=== PATIENT | female | born 1985 | race Caucasian/White ===

== ENCOUNTER 2017-01-24 16:05 | Emergency (ER) | payer OTHER ==
[~2017-01-24] VITALS: Ht 157.4 cm; Wt 56.7 kg
[2017-01-24 17:05] LABS: BASO # 0.1 10*3/uL (0.0-0.1); BASO % 1.3 % (0.0-1.0); EOS # 0.1 10*3/uL (0.0-0.4); EOS % 1.7 % (1.0-4.0); HEMATOCRIT 34.4 % (37.0-47.0); HEMOGLOBIN 10.8 g/dl (12.0-16.0); LYMPH # 1.8 10*3/uL (1.3-4.4); LYMPH % 39.4 % (27.0-41.0); MEAN CELL VOLUME 86.6 fl (81.0-99.0); MEAN CORPUSCULAR HGB 27.2 pg (27.0-31.0); MEAN CORPUSCULAR HGB CONC 31.4 g/dl (33.0-37.0); MEAN PLATELET VOLUME 10.3 fl (9.6-12.3); MONO # 0.3 10*3/uL (0.1-1.0); MONO % 6.5 % (3.0-9.0); NEUT # 2.4 10*3/uL (2.3-7.9); NEUT % 50.9 % (47.0-73.0); PLATELET COUNT AUTOMATED 246 10*3/uL (130-400); RED BLOOD COUNT 3.97 10*6/uL (4.10-5.10); RED CELL DISTRI WIDTH 13.6 % (0-14.5); WHITE BLOOD COUNT 4.7 10*3/uL (4.8-10.8)
[2017-01-24 17:22] LABS: ALBUMIN 3.4 gm/dl (3.1-4.5); ALKALINE PHOSPHATASE 74 U/L (45-117); BUN 6 mg/dl (7-24); CHLORIDE 103 mmol/L (98-107); CREATININE 0.85 mg/dL (0.55-1.02); SGOT/AST 13 IU/L (3-35); SGPT/ALT 15 U/L (12-78); SODIUM 141 mmol/L (136-145); TOTAL PROTEIN 7.1 gm/dL (6.4-8.2)
[2017-01-24 18:00] LABS: BILIRUBIN NEGATIVE (NEGATIVE); BLOOD NEGATIVE (NEGATIVE); CLARITY SL CLOUDY (CLEAR); COLOR YELLOW (YELLOW); GLUCOSE NEGATIVE (NEGATIVE); KETONE NEGATIVE (NEGATIVE); LEUKO ESTERASE NEGATIVE (NEGATIVE); NITRITE NEGATIVE (NEGATIVE); PH 6.5 (5.0-9.0); SPECIFIC GRAVITY 1.025 (1.005-1.030)
[2017-01-24 18:07] LABS: URINE AMPHETAMINES < 1000 (1000ng/ml); URINE BARBITURATES < 200 (200ng/ml); URINE BENZODIAZEPINES < 200 (200ng/ml); URINE CANNABINOIDS (THC) < 50 (50ng/ml); URINE COCAINE > 300 (300ng/ml); URINE METHADONE < 300 (300ng/ml); URINE OPIATES > 300 (300ng/ml)
[2017-01-24 18:08] LABS: BACTERIA TRACE; MUCOUS 1+; RBC 0-2 rbc/hpf (0-2); WBC 0-2 wbc/hpf (0-5)
[2017-01-24 18:09] LABS: URINE PHENCYCLIDINE < 25 (25ng/ml)
[2017-01-24] MEDS ORDERED: CEPHALEXIN500 M1 PO (19:31)
== END 2017-01-24 19:38 | disposition home or self-care (01) ==
LOC: ED 16:05
PROVIDERS: Nurse Practitioner
DX: T25.312A Burn of third degree of left ankle, initial encounter (principal); L03.116 Cellulitis of left lower limb; F17.200 Nicotine dependence, unspecified, uncomplicated; Z91.040 Latex allergy status; Z91.013 Allergy to seafood; X08.8XXA Exposure to other specified smoke, fire and flames, initial encounter; Y93.9 Activity, unspecified; Y92.9 Unspecified place or not applicable; Y99.9 Unspecified external cause status

== ENCOUNTER 2017-01-25 16:33 | Inpatient (IN) | payer OTHER ==
[~2017-01-25] VITALS: Ht 157.4 cm; Wt 60.1 kg
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
[~2017-01-25 16:33] MED LIST: CEPHALEXIN500 M1 PO
[2017-01-25 16:45] VITALS: BP 110/55
--- NOTE | 2017-01-25 17:22 | NUR ---
BIJAL BUSH IN TO SEE PT AND STATES DR MELGOZA WILL ACCEPT PT TO [facility] SINCE THIS PT SPOKE WITH KRISTIE FROM [facility]---JESUS DOE RN
--- NOTE | 2017-01-25 18:33 | NUR ---
31 year old FEMALE admitted to room # 529 for stabilization. Reports an addiction to OPIATES last used 4 hours prior to admission. Compliant with admission procedure.
--- NOTE | 2017-01-25 18:51 | NUR ---
PATIENT ADMITTED TO FLOOR UNDER NV PROGRAM DR MELGOZA IN WITH PATIENT. PATIENT ORIENTED TO FLOOR AND AWARE OF NOT BEING ALLOWED TO LEACE FLOOR MEDICATIONS REVIEWED AND UP DATED
--- NOTE | 2017-01-25 20:00 | NUR ---
ALERT AND ORIENTED X3. SKIN WARM AND DRY. LUNG SOUNDS CLEAR, ABD SOFT NORMAL ACTIVE BOWEL SOUNDS X4 QUAD. PT. HAS WOUND ON LEFT FOOT.SEEPING SMALL AMOUNT YELLOW DRAINAGE THROUGH BANDAGE. PT. VOIDED 300CC CLEAR YELLOW URINE. NO COMPLAINTS AT THIS TIME BUT WOULD LIKE SLEEPING PILL LATER.
[2017-01-25 20:05] VITALS: BP 95/54
--- NOTE | 2017-01-25 20:42 | NUR ---
CALLED DR. SCHMITT TO CONFIRM NO NEED FOR REPEAT URINE DRUG TEST AND HE SAID NO. ALSO ASKED FOR WOUND CARE ORDER AND HE SAID TO HAVE CRYSTAL LOOK AT IT IN AM AND OFFER RECOMMENDATION SO ORDER CAN BE PLACED.
--- NOTE | 2017-01-25 21:14 | NUR ---
TRAZADONE GIVEN PER ORDER FOR INSOMNIA AND PER PT. REQUEST. SEE MAR.
[2017-01-26] VITALS: BP 102/58
[2017-01-26 04:00] VITALS: BP 110/61
--- NOTE | 2017-01-26 04:30 | NUR ---
AWAKEND ALERT MOVEMENTS MORE EXAGGERATED LEGS RESTLESS. REQUIP AND ROBAXIN GIVEN FOR RESTLESSNESS OF LEGS AND MUSCLE ACHES. SEE MAR.
--- NOTE | 2017-01-26 05:30 | NUR ---
ROBAXIN AND REQUIP EFFECTIVE FOR RESTLESSNESS OF LEGS AND ACHEY.
--- NOTE | 2017-01-26 07:04 | NUR ---
LAB HAD DIFFICULTY DRAWING BLOOD THIS AM AND PT. DID NOT WANT THEM TO TRY ANYMORE AND REFUSED.
[2017-01-26 08:00] VITALS: BP 100/62
[2017-01-26 09:28] LABS: BASO # 0.1 10*3/uL (0.0-0.1); BASO % 0.7 % (0.0-1.0); EOS % 0.2 % (1.0-4.0); HEMATOCRIT 38.4 % (37.0-47.0); HEMOGLOBIN 12.1 g/dl (12.0-16.0); LYMPH # 1.3 10*3/uL (1.3-4.4); LYMPH % 16.2 % (27.0-41.0); MEAN CELL VOLUME 83.8 fl (81.0-99.0); MEAN CORPUSCULAR HGB 26.4 pg (27.0-31.0); MEAN CORPUSCULAR HGB CONC 31.5 g/dl (33.0-37.0); MEAN PLATELET VOLUME 10.9 fl (9.6-12.3); MONO # 0.2 10*3/uL (0.1-1.0); MONO % 2.7 % (3.0-9.0); NEUT # 6.4 10*3/uL (2.3-7.9); NEUT % 79.7 % (47.0-73.0); PLATELET COUNT AUTOMATED 281 10*3/uL (130-400); RED BLOOD COUNT 4.58 10*6/uL (4.10-5.10); RED CELL DISTRI WIDTH 13.5 % (0-14.5)
[2017-01-26 12:00] VITALS: BP 102/54
--- NOTE | 2017-01-26 12:06 | NUR ---
DR MELGOZA NOTIFIED OF PT'S WOUND, PT STATES SHE CARES FOR IT HERSELF. NO ORDERS AT THIS TIME.
--- NOTE | 2017-01-26 12:35 | NUR ---
Patient displaying withdrawal symptoms, including: irritability, anxiousness, restlessness and agitation. Scheduled/PRN medications provided. Will continue to monitor medication effectiveness.
[2017-01-26 13:27] LABS: BUN 5 mg/dl (7-24); CHLORIDE 108 mmol/L (98-107); POTASSIUM 3.7 mmol/L (3.5-5.1); SODIUM 140 mmol/L (136-145)
--- NOTE | 2017-01-26 14:00 | NUR ---
Patient resting. Responding to scheduled medications with fewer complaints of pain and anxiety. Call light within reach.
[2017-01-26 16:00] VITALS: BP 96/44
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
--- NOTE | 2017-01-26 16:44 | NUR ---
PATIENT ASKED TO DISCUSS AFTERCARE PLAN WITH [facility] AT A LATER TIME. KRISTIE BILLS B.A ENAMEL CRACKER
--- NOTE | 2017-01-26 17:18 | NUR ---
WOUND CARE PERFORMED PER ORDER TO PT'S LEFT LOWER LEG/FOOT. PT TOLERATED WELL.
[2017-01-26 20:00] VITALS: BP 101/53
--- NOTE | 2017-01-26 20:43 | NUR ---
Patient displaying withdrawal symptoms, including: irritability, anxiousness, restlessness and agitation. Scheduled/PRN medications provided, SEE EMAR. Will continue to monitor medication effectiveness.
--- NOTE | 2017-01-26 22:00 | NUR ---
Patient resting. Responding to scheduled medications with fewer complaints of pain and anxiety.
[2017-01-27] VITALS: BP 97/57
--- NOTE | 2017-01-27 04:17 | NUR ---
Patient displaying withdrawal symptoms, including: irritability, anxiousness, restlessness and agitation. Scheduled/PRN medications provided, see emar. Will continue to monitor medication effectiveness.
--- NOTE | 2017-01-27 06:00 | NUR ---
Patient resting. Responding to scheduled medications with fewer complaints of pain and anxiety.
[2017-01-27 08:00] VITALS: BP 108/52
--- NOTE | 2017-01-27 10:30 | NUR ---
Patient displaying withdrawal symptoms, including: irritability, anxiousness, restlessness and restless legs. Scheduled/PRN medications provided. See EMAR. Will continue to monitor medication effectiveness.
[2017-01-27 12:00] VITALS: BP 100/50
--- NOTE | 2017-01-27 12:07 | NUR ---
DR BARON NOTIFIED OF NEW CONSULT.
--- NOTE | 2017-01-27 12:15 | NUR ---
DR BARON HERE TO SEE PT AT THIS TIME.
--- NOTE | 2017-01-27 12:30 | NUR ---
WOUND CARE PERFORMED AT THIS TIME.
[2017-01-27 16:00] VITALS: BP 115/56
--- NOTE | 2017-01-27 16:56 | NUR ---
PT RESTING IN BED, NO DISTRESS NOTED.
--- NOTE | 2017-01-27 18:08 | NUR ---
PT COMPLAINING OF NAUSEA, RESTLESSNESS, AND RESTLESS LEGS. MEDICATED WITH REQUIP, VISTARIL, AND ZOFRAN. WILL MONITOR FOR EFFECTIVENESS.
--- NOTE | 2017-01-27 20:30 | NUR ---
PATIENT CALLED TO DESK "WHAT DO I HAVE TO DO TO SIGN MYSELF OUT?" APPROACHED PATIENT AND ENCOURAGED TO STAY TO COMPLETE PROGRAM. PATIENT DECLINED STATING HER RIDE IS ON THE WAY. AMA PRINTED AND PATIENT SIGNED AFTER EXPLAINING THAT SHE IS LEAVING AGAINST MEDICAL ADVICE, VOICED UNDERSTANDING.
--- NOTE | 2017-01-27 21:00 | NUR ---
PATIENT AMBULATED OFF FLOOR WITH ALL BELONGINGS
== END 2017-01-27 21:00 | disposition left against medical advice (07) | DRG 894 ==
LOC: ED 16:33 → EDHOLD 17:28 → 5E 17:28
PROVIDERS: Hospitalist; ADMIT Internal Medicine
DX: F11.23 Opioid dependence with withdrawal (principal); L03.116 Cellulitis of left lower limb; L97.529 Non-pressure chronic ulcer of other part of left foot with unspecified severity; F12.90 Cannabis use, unspecified, uncomplicated; F19.90 Other psychoactive substance use, unspecified, uncomplicated; F14.10 Cocaine abuse, uncomplicated; F41.9 Anxiety disorder, unspecified; Z53.21 Procedure and treatment not carried out due to patient leaving prior to being seen by health care provider; Z91.013 Allergy to seafood; Z91.040 Latex allergy status; Z79.899 Other long term (current) drug therapy; Z98.891 History of uterine scar from previous surgery; Z72.0 Tobacco use; Z84.89 Family history of other specified conditions; Z71.6 Tobacco abuse counseling